=== PATIENT | female | born 1970 | race African-American/Black ===

== ENCOUNTER 2022-09-22 11:06 | Emergency (ER) | payer OTHER | END 2022-09-22 13:36 | disposition home or self-care (01) | LOC: JD.ED 11:06 | DX: M25.561 Pain in right knee (principal); Z88.6 Allergy status to analgesic agent; Z88.5 Allergy status to narcotic agent | CPT/HCPCS: 73562-26-RT; 73562-RT; 99283 ==

== ENCOUNTER 2025-01-09 17:19 | Emergency (ER) | payer OTHER | END 2025-01-09 21:27 | disposition left against medical advice (07) | LOC: JD.ED 17:19 | DX: Z53.21 Procedure and treatment not carried out due to patient leaving prior to being seen by health care provider (principal) ==